=== PATIENT | male | born 1965 | race Caucasian/White ===

== ENCOUNTER 2024-01-19 13:04 | Inpatient (IN) | payer OTHER ==
[~2024-01-19] VITALS: Ht 182.9 cm; Wt 58.3 kg
[~2024-01-19 13:04] MED LIST: BUPR5DIS3; LANS15CA FT; METO5TAB2 PO; MIRA3350 PO; ONDA8TAB8 PO; SENN8.8S11 PO; SUCR1TAB56; TRAM100T21 PO; TRAM50TA2 FT
[2024-01-19] MEDS ORDERED: TRAM50TA2 PO (13:24)
[2024-01-19] MEDS: GASTROGRAFIN SOLUTION 30ML PO SCH (15:15)
[2024-01-19 15:21] LABS: BASO % 0.1 % (0.0-1.0); EOS % 0.3 % (0.0-3.0); HEMATOCRIT 37.3 % (42.0-52.0); HEMOGLOBIN 12.6 g/dl (13.5-17.5); LYMPH # 0.2 10^3/uL (1.5-5.0); LYMPH % 3.1 % (24.0-44.0); MEAN CORPUSCULAR HEMOGLOBIN 30.7 pg (27.0-33.0); MEAN CORPUSCULAR HGB CONC 33.8 g/dl (32.0-36.5); MEAN CORPUSCULAR VOLUME 90.8 fl (80.0-96.0); MONO # 0.3 10^3/uL (0.0-0.8); MONO % 4.2 % (2.0-8.0); NEUTROPHILS # 7.2 10^3/uL (1.5-8.5); NEUTROPHILS % 91.9 % (36.0-66.0); RED BLOOD COUNT 4.11 10^6/uL (4.30-6.10); WHITE BLOOD COUNT 7.8 10^3/uL (4.0-10.0)
[2024-01-19 15:53] LABS: PLATELET COUNT, AUTOMATED 77 10^3/uL (150-450)
[2024-01-19 15:55] LABS: ALBUMIN 1.9 G/DL (3.2-5.2); BILIRUBIN,DIRECT 5.5 MG/DL (<0.4); BILIRUBIN,TOTAL 7.3 MG/DL (0.3-1.2); TOTAL PROTEIN 4.6 G/DL (5.7-8.2)
[2024-01-19] MEDS: PANTOPRAZOLE 40MG TAB (PROTONIX) PO ONE (15:59)
[2024-01-19] MEDS ORDERED: ISOVUE-370 76% 100ML VIAL As Ordered ONE (15:59)
[2024-01-19] MEDS: ONDANSETRON 4MG 2ML VIAL IV ONE (16:03)
[2024-01-19] MEDS: NS 1,000 ML IV ONE (16:03)
[2024-01-19] MEDS: NS 1,000 ML IV SCH (18:54)
[2024-01-19] MEDS ORDERED: BUPR10DI3 TD (19:26)
[2024-01-19] MEDS ORDERED: HOME MED LIST COMPLETE! XX SCH (19:30)
[2024-01-19] MEDS ORDERED: ACETAMINOPHEN TAB 650MG DOSE (2X325MG) PO PRN (20:45)
[2024-01-19] MEDS ORDERED: ONDANSETRON 4MG 2ML VIAL IV PRN (21:00)
[2024-01-19] MEDS: KCL 20MEQ in NS 1000ML 1,000 ML IV SCH (21:33)
[2024-01-19] MEDS: ENOXAPARIN 40MG/0.4ML SYRINGE (J1650 PER 10MG) SC SCH (22:25)
[2024-01-19] MEDS: LR 1,000 ML IV ONE (22:32)
[2024-01-19 23:00] LABS: BLOOD UREA NITROGEN 13 MG/DL (9-23); CALCIUM LEVEL 7.6 MG/DL (8.5-10.1); CARBON DIOXIDE LEVEL 27 MMOL/L (20-31); CHLORIDE LEVEL 92 MMOL/L (98-107); CREATININE FOR GFR 0.42 MG/DL (0.70-1.30); GLOMERULAR FILTRATION RATE > 60.0 (>56); GLUCOSE, FASTING 87 MG/DL (60-100); POTASSIUM SERUM 3.5 MMOL/L (3.5-5.1); SODIUM LEVEL 125 MMOL/L (136-145)
[2024-01-20] VITALS (16 sets, daily range): BP systolic 86–100; BP diastolic 52–66; TEMP 95.7–97.4; O2SAT 93–99
[2024-01-20] MEDS: PIPERACILLIN/TAZOBACTAM SOD 3.375 GM in D5W MINI-BAG PLUS 50 ML IV SCH ×2 (00:47→14:12)
[2024-01-20 06:13] LABS: HEMATOCRIT 35.7 % (42.0-52.0); HEMOGLOBIN 12.2 g/dl (13.5-17.5); MEAN CORPUSCULAR HEMOGLOBIN 31.5 pg (27.0-33.0); MEAN CORPUSCULAR HGB CONC 34.2 g/dl (32.0-36.5); MEAN CORPUSCULAR VOLUME 92.2 fl (80.0-96.0); RED BLOOD COUNT 3.87 10^6/uL (4.30-6.10); WHITE BLOOD COUNT 7.7 10^3/uL (4.0-10.0)
[2024-01-20 06:23] LABS: PLATELET COUNT, AUTOMATED 77 10^3/uL (150-450)
[2024-01-20 06:24] LABS: INR 1.67; PROTHROMBIN TIME 19.1 SECONDS (12.5-14.5)
[2024-01-20 06:50] LABS: ALBUMIN 1.7 G/DL (3.2-5.2); ALKALINE PHOSPHATASE 1106 U/L (46-116); ALT/SGPT 321 U/L (7.0-40); AST/SGOT 326 U/L (<34); BILIRUBIN,TOTAL 7.7 MG/DL (0.3-1.2); BLOOD UREA NITROGEN 12 MG/DL (9-23); CALCIUM LEVEL 7.8 MG/DL (8.5-10.1); CARBON DIOXIDE LEVEL 25 MMOL/L (20-31); CHLORIDE LEVEL 93 MMOL/L (98-107); CREATININE FOR GFR 0.51 MG/DL (0.70-1.30); GLOMERULAR FILTRATION RATE > 60.0 (>56); GLUCOSE, FASTING 86 MG/DL (60-100); MAGNESIUM LEVEL 1.6 MG/DL (1.8-2.4); POTASSIUM SERUM 3.6 MMOL/L (3.5-5.1); SODIUM LEVEL 126 MMOL/L (136-145); TOTAL PROTEIN 4.2 G/DL (5.7-8.2)
[2024-01-20] MEDS ORDERED: ONDANSETRON 4MG 2ML VIAL IV PRN (07:30)
[2024-01-20] MEDS: MAG SULF 1GM/100ML (MAG RUN) 1 GM in IV 1 EA IV SCH (08:15)
[2024-01-20] MEDS ORDERED: SODIUM CHLORIDE 0.9% INJ 10 ML SYR IV PRN (08:20)
[2024-01-20] MEDS: SODIUM CHLORIDE 0.9% INJ 10 ML SYR IV SCH (09:00)
[2024-01-20 11:33] LABS: SOURCE, BODY FLUID ALBUMIN ASCITES
[2024-01-20 11:55] LABS: SOURCE, BODY FLUID GLUCOSE ASCITES
[2024-01-20 11:57] LABS: SOURCE, BODY FLUID TOT PROTEIN ASCITES; TOTAL PROTEIN, BODY FLUID < 2.0 G/DL (NOT ESTABLISHED)
[2024-01-20 12:01] LABS: APPEARANCE, BODY FLUID CLEAR (CLEAR); ASCITES FL COLOR YELLOW (COLORLESS); SOURCE, BODY FLUID ASCITES
[2024-01-20] MEDS ORDERED: GLUCOSE 4 GM CHEW PO PRN (12:40)
[2024-01-20] MEDS ORDERED: GLUCAGON INJ 1MG VIAL SC PRN (12:40)
[2024-01-20] MEDS: DEXTROSE 50% 50ML SYRINGE IV PRN (13:01)
[2024-01-20] MEDS: KCL 20MEQ in NS 1000ML 1,000 ML IV SCH (13:12)
[2024-01-20 15:00] LABS: FREE T4 1.02 NG/DL (0.89-1.76); THYROID STIMULATING HORMONE 3.374 uIU/ML (0.55-4.78)
[2024-01-21 03:34] VITALS: BP 108/58; TEMP 96.7; O2SAT 94
[2024-01-21 06:51] LABS: HEMOGLOBIN 10.5 g/dl (13.5-17.5); LYMPH # 0.2 10^3/uL (1.5-5.0); LYMPH % 4.8 % (24.0-44.0); MEAN CORPUSCULAR HEMOGLOBIN 31.4 pg (27.0-33.0); MEAN CORPUSCULAR VOLUME 89.8 fl (80.0-96.0); MONO # 0.3 10^3/uL (0.0-0.8); MONO % 6.8 % (2.0-8.0); NEUTROPHILS # 3.5 10^3/uL (1.5-8.5); NEUTROPHILS % 87.1 % (36.0-66.0); RED BLOOD COUNT 3.34 10^6/uL (4.30-6.10)
[2024-01-21 06:53] LABS: PLATELET COUNT, AUTOMATED 69 10^3/uL (150-450)
[2024-01-21 06:59] LABS: INR 1.93; PROTHROMBIN TIME 21.4 SECONDS (12.5-14.5)
[2024-01-21 07:27] LABS: ALBUMIN 2.1 G/DL (3.2-5.2); ALKALINE PHOSPHATASE 854 U/L (46-116); ALT/SGPT 226 U/L (7.0-40); AST/SGOT 223 U/L (<34); BILIRUBIN,TOTAL 7.1 MG/DL (0.3-1.2); BLOOD UREA NITROGEN 9 MG/DL (9-23); CALCIUM LEVEL 7.5 MG/DL (8.5-10.1); CARBON DIOXIDE LEVEL 25 MMOL/L (20-31); CHLORIDE LEVEL 96 MMOL/L (98-107); CREATININE FOR GFR 0.41 MG/DL (0.70-1.30); GLOMERULAR FILTRATION RATE > 60.0 (>56); GLUCOSE, FASTING 86 MG/DL (60-100); MAGNESIUM LEVEL 1.8 MG/DL (1.8-2.4); PHOSPHORUS LEVEL 2.2 MG/DL (2.5-4.9); POTASSIUM SERUM 3.7 MMOL/L (3.5-5.1); SODIUM LEVEL 129 MMOL/L (136-145); TOTAL PROTEIN 4.2 G/DL (5.7-8.2)
[2024-01-21 08:09] VITALS: BP 89/58; TEMP 97.5; O2SAT 88
[2024-01-21] MEDS: MAG SULF 1GM/100ML (MAG RUN) 1 GM in IV 1 EA IV ONE (10:48)
[2024-01-21] MEDS ORDERED: MORPHINE 10MG/0.5ML ORAL CONCENTRATE SOLUTION U/D SL PRN (11:35)
[2024-01-21] MEDS ORDERED: LORazepam 1 MG TAB PO PRN (11:35)
[2024-01-21] MEDS ORDERED: SCOPOLAMINE 1MG TRANSDERMAL PATCH TOP PRN (11:35)
[2024-01-21] MEDS: SODIUM PHOSPHATE INJ 30 MMOL in D5W 500 ML IV ONE (12:08)
[2024-01-22] MEDS ORDERED: MORP1SOL5 PO (07:10)
[2024-01-22] MEDS ORDERED: HYOS125TA PO (07:10)
[2024-01-22] MEDS ORDERED: ATIV1TAB10 PO (07:10)
== END 2024-01-22 11:00 | disposition hospice, home (50) | DRG 240 ==
LOC: M ED 13:04 → M ED INP 20:45 → CANRESERV 01-20 00:14 → ENRESERV 01-20 00:14 → M PCU 01-20 02:27
PROVIDERS: ADMIT Preventive Medicine Undersea and Hyperbaric Medicine; ATTEND Internal Medicine
PROC: 0W9G3ZZ Drainage of Peritoneal Cavity, Percutaneous Approach (ICD-10-PCS; principal; 2024-01-20 10:11)
DX: C16.0 Malignant neoplasm of cardia (principal); R18.0 Malignant ascites; G93.41 Metabolic encephalopathy; E43 Unspecified severe protein-calorie malnutrition; E72.20 Disorder of urea cycle metabolism, unspecified; R64 Cachexia; K76.6 Portal hypertension; I95.9 Hypotension, unspecified; D69.6 Thrombocytopenia, unspecified; E87.1 Hypo-osmolality and hyponatremia; R13.10 Dysphagia, unspecified; E88.09 Other disorders of plasma-protein metabolism, not elsewhere classified; E83.42 Hypomagnesemia; E83.39 Other disorders of phosphorus metabolism; Z51.5 Encounter for palliative care; Z66 Do not resuscitate; C78.7 Secondary malignant neoplasm of liver and intrahepatic bile duct; E86.0 Dehydration; K74.60 Unspecified cirrhosis of liver; K76.82 Hepatic encephalopathy; R74.01 Elevation of levels of liver transaminase levels; R68.0 Hypothermia, not associated with low environmental temperature; E16.2 Hypoglycemia, unspecified; R63.0 Anorexia; Z92.21 Personal history of antineoplastic chemotherapy; Z79.891 Long term (current) use of opiate analgesic; Z79.899 Other long term (current) drug therapy; Z68.1 Body mass index [BMI] 19.9 or less, adult